=== PATIENT | female | born 1995 | race Caucasian/White ===

== ENCOUNTER 2018-03-01 08:42 | Emergency (ER) | payer OTHER, SELFPAY ==
[2018-03-01 08:43] VITALS: BP 119/76; PULSE 93; RESP 16; TEMP 36.9; O2SAT 100; BMI 25.9
--- NOTE | 2018-03-01 09:01 | CT_ITS ---
STUDY: CT ABDOMEN AND PELVIS WITH CONTRAST REASON FOR EXAM: Female, 22 years old. Right lower quadrant pain. Patient is being treated for UTI. RADIATION DOSAGE (If Supplied By Facility): CTDIvol = ( 9.94 ) mGy, DLP = ( 675.30 ) mGycm TECHNIQUE: Transaxial images were obtained from the dome of the diaphragm to the symphysis pubis with oral contrast. 100ml ml of Isovue 300 contrast was administered. Sagittal and coronal images were reconstructed. Individualized dose optimization techniques were used for this CT. COMPARISON: None. FINDINGS: The visualized lung bases are unremarkable. The visualized portions of the heart are within normal limits. Normal liver. Normal gallbladder and extrahepatic biliary system. Normal spleen. Normal pancreas. Normal bilateral adrenal glands. Normal right kidney. Normal left kidney. Normal visualized stomach. Normal small intestine. Normal colon. The appendix is visualized and appears normal. Normal abdominal aorta. Normal inferior vena cava. Normal retroperitoneum. Normal urinary bladder. 5.5 cm x 3.3 cm septated cystic mass in the right adnexa. Small amount of free fluid is seen in the cul-de-sac. The endometrium measures 1.3 cm in transverse dimension. Normal abdominal wall. Normal osseous structures. Limbus vertebrae along the anterior superior endplate of the L4 vertebrae. CT/Abdomen/Pelvis WITH Contrast IMPRESSION: 5.5 cm x 3.3 cm septated cystic mass in the right adnexa with small amount of free fluid in the cul-de-sac. Thickened endometrium. Correlation with ultrasound is recommended. Electronically Signed: Jorge Mercado MD at 11:22 EDT Tel [phone], Service support ,
--- NOTE | 2018-03-01 09:12 | ED.RN ---
PT REFUSES PAIN MEDS
[2018-03-01 09:15] LABS: Absolute Lymphocyte Count 1.54 X10^3/ul (0.83-4.51); Absolute Neutrophil Count 3.6 X10^3/uL (2.0-7.7); Basophil# 0.02 X10^3/uL; Basophil% 0.3 % (0-1); Eosinophil# 0.12 X10^3/uL; Eosinophils% 2.1 % (0-5); Hematocrit 38.6 % (37-47); Hemoglobin 13.7 g/dl (12.0-15.0); Lymphocyte # 1.54 X10^3/ul (4.0); Lymphocyte % 26.6 % (19-41); Mean Corp Hgb Conc 35.5 g/gl (32-36); Mean Corpuscular Hgb 31.6 pg (27.0-32.0); Mean Corpuscular Volume 89.1 fL (81-99); Mean Platelet Vol. 8.4 fl (6.2-12.0); Monocyte# 0.46 X10^3/uL; Monocyte% 7.9 % (0-10); Neutrophil # 3.64 X10^3/uL (2.7-7.7); Neutrophil % 62.9 % (47-70); POSITIVE COUNT NO; POSITIVE DIFFERENTIAL NO; POSITIVE MORPHOLOGY NO; Platelet Count 220 K/mm3 (150-450); RBC Distribution Width CV 11.6 % (11.6-14.6); RBC Distribution Width SD 37.5 fl (35.1-43.9); Red Blood Count 4.33 M/mm3 (4.2-5.4); White Blood Count 5.8 K/mm3 (4.4-11.0)
--- NOTE | 2018-03-01 09:16 | ED.VISSUMM ---
- ER Visit Summary Date of Service: 03/01/18 Chief Complaint: Abdominal pain History of Present Illness: The patient is a 22 F with rather abrupt onset of lower abdominal pain, worse in the right lower quadrant, that started yesterday. Patient states she did have some dysuria. She has had some nausea but no vomiting. She has recently been taking magnesium to help with constipation. She is also currently taking medications to try to get . Her last menstrual cycle was 2 and half weeks ago. [facility] The physician there felt she had a urinary tract infection and started her on an antibiotic. Patient states she only took 1 dose but believes that she may have appendicitis so she came in for evaluation. Physical Examination: Vital signs are unremarkable. Head neck examination is normal. Heart is regular rate and rhythm. On lung sounds are clear. Abdomen is soft with tenderness in the right lower quadrant. There is no guarding or rebound. Active bowel sounds are noted. Test Results: CBC and chemistry studies are normal. Urinalysis is unremarkable. test negative. CT abdomen pelvis with p.o. and IV contrast reveals a 5.5 x 3.3 septated cystic mass in the right adnexa. There is a small amount of free fluid in the cul-de-sac. Ultrasound is recommended. Pelvic ultrasound reveals simple and complex cystic structures in the right ovary. There is a 1.9 x 2.3 x 2.0 cm simple cyst. There is a complex solid and cystic nodule measuring 3.1 x 3 x 2.6 cm. There is normal arterial flow. Emergency Department Course and Treatment: Patient was ordered pain medication however declined. She was updated throughout her ER stay. Patient does have a list of the medications that she is currently taking. She is taking FertilAid for Women, a homeopathic medication and attempts to help her get . She is taking multiple probiotics, fish oil, along with vitamins and supplements. Patient is currently being followed by nurse practitioner Elham Gloria. I left a message for her. Patient was discharged with instructions to stop taking the medication to increase fertility until further instructed. Granulator Machine Operator for Elham Gloria did call back several hours later. Test results and plan was relayed to her at that time. Treatment Plan: [] Disposition: Discharge Impression: Ovarian cyst This note was generated with [employer]arity[employer] software. It may contain incorrect words, spelling, and punctuation that were not noted in review of the chart prior to signing ED Disposition - Plan for ED Patient: Disposition: Home or Assisted Living Chief Complaint: Abd Pain Instructions: ED Cyst Ovarian Referrals: Sean Adair DO [Primary Care Provider] - Elham Gloria [NON-STAFF] -
[2018-03-01] MEDS: 0.9% Normal Saline 1,000 ML 150 ML IV (09:19)
[2018-03-01 09:23] LABS: Internal QC Validated? YES +Cl - CLEAR BKGD; Pregnancy, Urine Negative Negative
[2018-03-01 09:28] LABS: Anion Gap 8 (5-15); BUN 8 mg/dL (7-18); BUN/Creat Ratio 10.8 RATIO (10-20); Calcium,Total 9.3 mg/dL (8.5-10.1); Chloride 104 mmol/L (98-107); Creatinine, Serum 0.74 mg/dL (0.55-1.02); EST Glomerular Filtration Rate 103 mL/min (>60); Est Glom Filt Rate - Afr Amer 125 mL/min (>60); Estimated Creatinine Clearance 94.31 ml/min; Glucose 93 mg/dL (74-106); Potassium 3.8 mmol/L (3.5-5.1); Sodium Level 139 mmol/L (136-145)
[2018-03-01 09:36] LABS: Bacteria 0 SEEN /hpf (None Seen); Mucous, Urine 0 SEEN /hpf (<or=2+); Red Blood Cells-Urine 0 SEEN /hpf (0-5)
[2018-03-01 09:37] LABS: Color, Urine Straw (Yellow); Glucose, Dipstick Normal (Normal); Ketone-Dipstick Negative (Negative); Leukocyte Esterase-Dipstick 25 /ul (Negative); Nitrite-Dipstick Negative (Negative); Occult Blood-Urine Negative /ul (Negative); Protein-Dipstick Negative (Negative); Urine Bilirubin Dipstick Negative (Negative); Urine Clarity Clear (Clear); Urine Urobilinogen Normal (Normal)
[2018-03-01 09:42] LABS: Pregnancy, Serum, hCG Quali. NEGATIVE Negative (0-9 Nonpreg)
[2018-03-01 09:50] LABS: Squamous Epithelial Cells - UA 0-5 SEEN /hpf (5-10); White Blood Cells 0-5 SEEN /hpf (0-5)
--- NOTE | 2018-03-01 11:37 | US_ITS ---
STUDY: ULTRASOUND OF THE FEMALE PELVIS - COMPLETE REASON FOR EXAM: Female, 22 years old. Pelvic pain. LMP: February 13, 2018. TECHNIQUE: Transvaginal TECHNICAL QUALITY: Adequate. COMPARISON: Comparison is made with prior CT scan of the abdomen and pelvis from earlier today. FINDINGS: The uterus is anteverted and is in a midline position. The uterus measures 6.4 cm x 4.9 cm x 2.7 cm. Normal uterine cervix. The endometrium measures 7.4 mm in thickness, and is hyperechoic. There is no demonstrated endometrial mass. There is no demonstrated myometrial mass. I.U.D. - The patient does not have an I.U.D. The right ovary is visualized. The right ovary measures 4.4 cm x 4.2 cm x 2.6 cm. There is a 1.9 cm x 2.3 cm x 2 cm simple cyst in the ovary. Adjacent to this, there is a complex solid and cystic nodule measuring 3.1 cm x 3 size by 2.6 cm. This may represent a complicated cyst such as hemorrhagic cyst. Infection cannot be excluded. There is no visualized right adnexal mass or complex lesion. There is normal arterial and normal venous vascularity. The left ovary is visualized. The left ovary measures 3 cm x 2.2 cm x 1.8 cm. There is no left ovarian cyst or ovarian mass. There is no visualized left adnexal mass or complex lesion. There is normal arterial and normal venous vascularity. There is a moderate amount of fluid in the cul-de-sac. Polycystic ovary disease: No. US/Transvaginal Non- IMPRESSION: Simple cyst and complex cystic structure in the right ovary as described. Follow-up is recommended. Moderate amount of free fluid in the cul-de-sac. Electronically Signed: Jorge Mercado MD at 13:07 EDT Tel [phone], Service support ,
--- NOTE | 2018-03-01 12:52 | ED.RN ---
pt asked for something to eat or drink. pt advised nothing until results come back
[2018-03-01 13:59] VITALS: BP 125/78; PULSE 80; RESP 18; O2SAT 99
--- NOTE | 2018-03-01 14:21 | ED.DEP ---
ED Disposition - Plan for ED Patient: Disposition: Home or Assisted Living Chief Complaint: Abd Pain Instructions: ED Cyst Ovarian Referrals: Sean Adair DO [Primary Care Provider] - Elham Gloria [NON-STAFF] -
[2018-03-01 14:27] VITALS: BP 124/69; PULSE 73; RESP 15; O2SAT 98
== END 2018-03-01 14:28 | disposition home or self-care (01) ==
PROVIDERS: Emergency Provider Emergency Medicine; Family Provider Family Medicine; PCP Family Medicine
DX: N83.291 Other ovarian cyst, right side (principal)
CPT/HCPCS: 74177; 76830; 80048; 81001; 81025; 84703; 85025; 93976; 99283; J7030; Q9967; A4216